=== PATIENT | female | born 2005 | race Caucasian/White ===

== ENCOUNTER 2025-03-13 14:46 | Emergency (ER) | payer OTHER, MEDICAID ==
[~2025-03-13] VITALS: Ht 157.5 cm; Wt 63.0 kg
[2025-03-13 14:49] VITALS: O2SAT 98
[2025-03-13] MEDS: ACETAMINOPHEN 325MG TABLET PO ONE (15:39)
[2025-03-13] MEDS ORDERED: IBUP-1523 MT (17:57)
[2025-03-13] MEDS ORDERED: TOPUD MT (17:57)
[2025-03-13 18:07] VITALS: BP 105/60; PULSE 80; RESP 17; TEMP 37.4; O2SAT 99
== END 2025-03-13 18:08 | disposition home or self-care (01) ==
LOC: ER 15:04
DX: S80.01XA Contusion of right knee, initial encounter (principal); S20.219A Contusion of unspecified front wall of thorax, initial encounter; V89.2XXA Person injured in unspecified motor-vehicle accident, traffic, initial encounter; Y92.410 Unspecified street and highway as the place of occurrence of the external cause; Y93.89 Activity, other specified; Y99.8 Other external cause status
CPT/HCPCS: 71046; 73562; 81025; 93005; 99284